=== PATIENT | female | born 1980 | race African-American/Black ===

== ENCOUNTER 2018-07-22 12:58 | Emergency (ER) | payer BC ==
[2018-07-22 13:15] VITALS: BP 117/78; PULSE 80; TEMP 97.6; BMI 39.9
--- NOTE | 2018-07-22 13:58 | PDOC ---
History of Present Illness - General Chief Complaint: Pain, Acute Stated Complaint: RT ARM PAIN Time Seen by Provider: 07/22/18 13:47 - History of Present Illness Initial Comments: 37-year-old female without comorbidities presents for evaluation of atraumatic onset of right shoulder pain 3 weeks. She states she was throwing out of [place] in her pain started after she threw the fan into the garbage. She points to the anterior lateral aspect of the right shoulder as the area of her discomfort her pain is exacerbated with motion relieved with rest free of radiation 07/22/18 13:56 Past History - Past Medical History Allergies/Adverse Reactions: Allergies Allergy/AdvReac Type Severity Reaction Status Date / Time No Known Allergies Allergy Verified 07/22/18 13:12 Home Medications: Ambulatory Orders NK [No Known Home Medication] 07/22/18 COPD: No - Suicide/Smoking/Psychosocial Hx Smoking History: Current some day smoker Number of Cigarettes Smoked Daily: 1 Information on smoking cessation initiated: No Review of Systems - Review of Systems Musculoskeletal: Yes: See HPI, Joint Pain All Other Systems: Reviewed and Negative *Physical Exam - Vital Signs Last Vital Signs Temp Pulse Resp BP Pulse Ox 97.6 F 80 18 117/78 99 07/22/18 13:12 07/22/18 13:12 07/22/18 13:12 07/22/18 13:12 07/22/18 13:12 - Physical Exam Comments: Right shoulder skin color and temperature are normal. Range of motion is full with pain at terminal ranges of external rotation and abduction. She has 3 out of 5 strength with super spinatus isolation 3 out of 5 with external rotation 5 out of 5 with internal rotation mildly positive impingement maneuvers. Negative Spurling sign. She has no gross sensorimotor deficits. She is neurovascularly intact. 07/22/18 13:56 Medical Decision Making - Medical Decision Making 6 is most likely an impingement syndrome or acute rotator cuff tear I will have her follow-up with orthopedic surgery for further evaluation and treatment options 07/22/18 13:57 *DC/Admit/Observation/Transfer Diagnosis at time of Disposition: Shoulder impingement Diagnosis at time of Disposition: (Ruled Out): Coracoid impingement of right shoulder - Discharge Dispostion Disposition: HOME Condition at time of disposition: Stable Decision to Admit order: No - Referrals Referrals: Toby Skelton MD [Staff Physician] - - Patient Instructions Printed Discharge Instructions: Shoulder Tendinopathy Additional Instructions: Return to the emergency room should symptoms worsen or go unresolved. He may take Tylenol and Motrin as directed for pain. Follow-up with orthopedic surgery once 2 days further evaluation and treatment options. The exercises that I shown you 3-5 times a day - Post Discharge Activity
== END 2018-07-22 14:11 | disposition home or self-care (01) ==
LOC: JERFT 12:58
DX: M75.41 Impingement syndrome of right shoulder (principal)
CPT/HCPCS: 99281-25

== ENCOUNTER 2021-09-08 10:20 | Emergency (ER) | payer BC ==
[2021-09-08 10:50] VITALS: TEMP 98.2; BMI 44.1
[2021-09-08] MEDS ORDERED: SODIUM CHLORIDE 0.9% 500 ML INFUS.BAG IV ONE (11:46)
[2021-09-08] MEDS ORDERED: ACETAMINOPHEN 1000 MG/100 ML VIAL IVPB ONE (11:46)
[2021-09-08] MEDS ORDERED: MAG HYDROX/AL HYDROX/SIMETH 30 ML UNIT-DOSE CUP PO ONE (11:46)
[2021-09-08] MEDS ORDERED: FAMOTIDINE 20 MG/50 ML IVPB 20 MG/50 ML MG IVPB ONE ×2 (11:47→11:50)
[2021-09-08] MEDS ORDERED: MAG HYDROX/AL HYDROX/SIMETH 30 ML UNIT-DOSE CUP ONE (11:50)
[2021-09-08] MEDS ORDERED: ACETAMINOPHEN INJECTION 100 ML IVPB ONE (11:50)
[2021-09-08 12:20] LABS: HEMATOCRIT 26.1 % (32.4-45.2); HEMOGLOBIN 7.9 GM/dL (10.7-15.3); MCHC 30.1 g/dl (32.0-36.0); MEAN CELL VOLUME 58.3 fl (80-96); MEAN PLT VOLUME 7.1 fl (7.5-11.1); PLATELET COUNT 424 10^3/uL (134-434); RBC 4.48 M/mm3 (3.60-5.2); WHITE BLOOD COUNT 8.1 K/mm3 (4.0-10.0)
[2021-09-08 12:24] LABS: ADD RBC MORPHOLOGY YES; MCH 17.6 pg (25.7-33.7)
[2021-09-08 12:41] LABS: CHLORIDE 107 mmol/L (98-107); SODIUM 137 mmol/L (136-145)
[2021-09-08 12:43] LABS: CALCIUM 8.5 mg/dL (8.5-10.1)
[2021-09-08 12:44] LABS: ALBUMIN 3.5 g/dl (3.4-5.0); ANION GAP 3 MMOL/L (8-16); CO2 28 mmol/L (21-32); GLUCOSE,RANDOM 98 mg/dL (74-106)
[2021-09-08 12:47] LABS: CREATININE 0.6 mg/dL (0.55-1.3); SGOT/AST 12 U/L (15-37); SGPT/ALT 13 U/L (13-61)
[2021-09-08 12:49] LABS: BILIRUBIN,TOTAL 0.4 mg/dL (0.2-1); TOT PROT 7.5 g/dl (6.4-8.2)
[2021-09-08 12:50] LABS: ALK PHOS 86 U/L (45-117)
[2021-09-08 14:21] LABS: ANISOCYTOSIS 1+; MACROCYTOSIS 0; PLATELET ESTIMATE NORMAL; TARGET CELLS 1+; TEAR DROP CELLS 2+
[2021-09-08 14:56] VITALS: BP 117/67; PULSE 78
== END 2021-09-08 14:58 | disposition home or self-care (01) ==
LOC: JER 10:20
PROC: 3E033NZ Introduction of Analgesics, Hypnotics, Sedatives into Peripheral Vein, Percutaneous Approach (ICD-10-PCS; principal; 2021-09-08)
PROC: 3E033GC Introduction of Other Therapeutic Substance into Peripheral Vein, Percutaneous Approach (ICD-10-PCS; 2021-09-08)
DX: D64.9 Anemia, unspecified (principal); R07.9 Chest pain, unspecified
CPT/HCPCS: 36415; 71046-TC-FY; 80053; 82272; 82550; 83735; 84484; 85025; 93005; 93010; 99284-25; J0131

== ENCOUNTER 2023-10-29 05:03 | Emergency (ER) | payer BC ==
[2023-10-29 05:14] VITALS: BP 106/75; PULSE 94; RESP 20; TEMP 98.4; BMI 42.7
[2023-10-29] MEDS ORDERED: ACETAMINOPHEN 500 MG TABLET (FP) PO ONE (05:20)
[2023-10-29] MEDS ORDERED: ACETAMINOPHEN 325 MG TABLET (FP) ONE (05:31)
[2023-10-29] MEDS ORDERED: KETOROLAC TROMETHAMINE 30 MG/1 ML VIAL IM ONE (07:49)
[2023-10-29] MEDS ORDERED: KETOROLAC TROMETHAMINE 30 MG/1 ML VIAL ONE (08:02)
== END 2023-10-29 08:42 | disposition home or self-care (01) ==
LOC: JER 05:03
PROC: 3E0233Z Introduction of Anti-inflammatory into Muscle, Percutaneous Approach (ICD-10-PCS; principal; 2023-10-29)
DX: S89.92XA Unspecified injury of left lower leg, initial encounter (principal); M25.562 Pain in left knee; X50.1XXA Overexertion from prolonged static or awkward postures, initial encounter
CPT/HCPCS: 73564-TC-RT-FY; 99284-25